=== PATIENT | female | born 2000 | race African-American/Black ===

== ENCOUNTER 2022-07-01 09:46 | Emergency (ER) | payer SELFPAY ==
[2022-07-01 10:04] VITALS: BP 132/76; PULSE 96; RESP 18; TEMP 36.4; O2SAT 100
[2022-07-01 11:57] LABS: Appearance Urine Clear (Clear); Bilirubin Urine Negative (Negative); Color Urine Yellow (Yellow); Glucose Urine UA Negative (Negative); Ketones Urine Negative (Negative); Leukocyte Esterase Ur 3+ LEU/UL (Negative); Nitrate Urine Negative (Negative); Protein Urine Negative (Negative); Specific Grav Ur 1.025 (1.001-1.035); Urobilinogen Urine 0.2 mg/dL (<2.0)
[2022-07-01 12:16] LABS: Bacteria Urine Trace /hpf; Mucus Urine Rare /lpf; Squamous Epithelial Cell Urine Few /hpf (Few); WBC Urine 21-30 /hpf
[2022-07-01 12:18] LABS: Add Urine Microscopic? YES; Blood Urine Trace-Intact (Negative)
[2022-07-01] MEDS: metroNIDAZOLE 250 MG TABLET 500 MG PO (13:16)
[2022-07-01] MEDS: cefTRIAXone 1 GM VIAL 0.5 GM IM (13:16)
[2022-07-01] MEDS: DOXYCYCLINE HYCLATE 100 MG TABLET PO (13:16)
--- NOTE | 2022-07-01 14:23 | ED.GENADULT ---
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 Ongoing for a month. Reports she was initially seen at [facility] and treated for STI but that her test came back negative. She reports negative gonorrhea and trichomonas. She is unsure about chlamydia. Denies sexual activity since then. She has burning urination. No fevers or chills or sweats. No pelvic pain. Review of Systems Review of Systems: All systems reviewed & are unremarkable except as noted in HPI and below Constitutional: Constitutional: Denies chills, Denies fatigue and Denies fever(s) Cardiovascular: Cardiovascular: Denies chest pain, Denies rapid heart rate and Denies radiating jaw, neck or arm pain Respiratory: Respiratory: Denies cough and Denies dyspnea Gastrointestinal: Gastrointestinal: Denies abdominal pain, Denies nausea and Denies vomiting Genitourinary: Genitourinary: Denies nocturia, Reports dysuria, Denies pelvic pain and Reports vaginal discharge PMF Past Medical History Medical History (Updated 07/01/22 @ 14:30 by Mahad Dodd MD) Healthy female adult Surgical History Surgical History (Updated 07/01/22 @ 14:27 by Mahad Dodd MD) No history of previous surgery Social History Social History (Updated 07/01/22 @ 14:27 by Mahad Dodd MD) Smoking status: Never smoker Exam Narrative: GENERAL: Well-appearing, well-nourished, and in no acute distress. HEAD: Normocephalic, atraumatic. CHEST: Clear to auscultation. No respiratory distress. HEART: Regular rate and rhythm. Normal peripheral pulses. ABDOMEN: Soft, nontender, nondistended. : Moderate amount of yellow discharge with pulling on pelvic exam. Cervix nonfriable but patient with discomfort with speculum insertion consistent with CMT. EXTREMITIES: Normal range of motion. No edema. SKIN: Warm, dry, no rash. NEURO: Alert and oriented x3. PSYCH: Normal mood and affect. Course Course Emergency Course: We will treat patient as if she has PID since the trichomonas test is positive she may have concurrent infection. We will give follow-up with [facility]. Patient verbalized understanding of treatment plan. Vital Signs Vital signs: Vital Signs Temperature 97.5 F L 07/01/22 10:04 Pulse Rate 96 07/01/22 10:04 Respiratory Rate 18 07/01/22 10:04 Blood Pressure 132/76 07/01/22 10:04 Pulse Oximetry 100 07/01/22 10:04 Oxygen Delivery Room Air 07/01/22 10:04 Temperature 97.5 F L 07/01/22 10:04 Pulse Rate 96 07/01/22 10:04 Respiratory Rate 18 07/01/22 10:04 Blood Pressure 132/76 07/01/22 10:04 Pulse Oximetry 100 07/01/22 10:04 Oxygen Delivery Room Air 07/01/22 10:04 Medical Decision Making Vital Signs Vital Signs: Vital Signs Temperature 97.5 F L 07/01/22 10:04 Pulse Rate 96 07/01/22 10:04 Respiratory Rate 18 07/01/22 10:04 Blood Pressure 132/76 07/01/22 10:04 Pulse Oximetry 100 07/01/22 10:04 Oxygen Delivery Room Air 07/01/22 10:04 Temperature 97.5 F L 07/01/22 10:04 Pulse Rate 96 07/01/22 10:04 Respiratory Rate 18 07/01/22 10:04 Blood Pressure 132/76 07/01/22 10:04 Pulse Oximetry 100 07/01/22 10:04 Oxygen Delivery Room Air 07/01/22 10:04 Lab Data Labs: Lab Results 07/01/22 07/01/22 07/01/22 Range/Units 11:47 12:28 12:28 Urine Color Yellow (Yellow) Urine Appearance Clear (Clear) Urine pH 7.0 (5.0-9.0) Ur Specific [place] 1.025 (1.001-1.035) Urine Protein Negative (Negative) mg/dL Urine Glucose (UA) Negative (Negative) mg/dL Urine Ketones Negative (Negative) mg/dL Ur Blood (Man) Trace-intact (Negative) Urine Nitrate Negative (Negative) Urine Bilirubin Negative (Negative) Urine Urobilinogen 0.2 (<2.0) mg/dL
== END 2022-07-01 14:39 | disposition home or self-care (01) ==
PROVIDERS: Emergency Provider Emergency Medicine
DX: N73.9 Female pelvic inflammatory disease, unspecified (principal); A59.01 Trichomonal vulvovaginitis
CPT/HCPCS: 81001; 81025; 87070; 87086; 87491; 87591; 87808; 96372; 99284; A9270; J0696